=== PATIENT | male | born 1960 | race Caucasian/White ===

== ENCOUNTER 2022-10-01 11:12 | Outpatient (CLI) | payer BC, SELFPAY | END 2022-10-01 11:13 | disposition home or self-care (01) | PROVIDERS: PCP Family Medicine; Visit Provider Family Medicine | DX: Z00.00 Encounter for general adult medical examination without abnormal findings (principal); R79.89 Other specified abnormal findings of blood chemistry; R73.9 Hyperglycemia, unspecified; I10 Essential (primary) hypertension | CPT/HCPCS: 80076 ==

== ENCOUNTER 2022-12-26 10:19 | Emergency (ER) | payer BC, SELFPAY ==
[2022-12-26 10:42] VITALS: BP 145/77; PULSE 60; RESP 16; TEMP 36.6; O2SAT 94; BMI 33.5
--- NOTE | 2022-12-26 11:18 | ED_ITS ---
HPI - General Adult General Date Seen: 12/26/22 Chief complaint: Laceration/Wound Stated complaint: Vein burst on L ankle Time Seen by Provider: 12/26/22 11:04 Source: patient Mode of arrival: ambulatory Limitations: no limitations History of Present Illness HPI narrative: Patient is a 62-year-old male who had bleeding from a varicosity on his left ankle last night. He has had this happen a couple times before, so he wrapped it with Gelfoam and left the dressing on until today. He want to have it looked at. He has had vein stripping a couple of times in the past and feels he is due for repeat treatment. Since wrapping it he does not feel that there has been any further bleeding. He takes Eliquis for atrial fibrillation. He does have a valve but it is a bovine valve. Related Data Home Medications Medication Instructions Recorded Confirmed furosemide 40 mg tablet 40 mg PO BID 12/18/21 12/26/22 potassium chloride 10 mEq 10 meq PO QDAY 12/28/21 12/26/22 capsule,extended release ascorbic acid (vitamin C) 1,000 mg 1 g PO QDAY 12/26/22 12/26/22 capsule multivitamin 1 tab PO QAM 12/26/22 12/26/22 vitamin B complex 1 tab PO QDAY 12/26/22 12/26/22 Previous Rx's Medication Instructions Recorded albuterol sulfate 90 mcg/actuation 2 puff inhalation Q6H PRN 06/09/22 aerosol inhaler shortness of breath or wheezing #8.5 grams apixaban 2.5 mg tablet (Eliquis) 2.5 mg PO BID #60 tabs 11/05/22 carvedilol 6.25 mg tablet 6.25 mg PO BID #180 tabs 11/05/22 Allergies Allergy/AdvReac Type Severity Reaction Status Date / Time No Known Allergies Allergy Verified 12/26/22 10:40 [facility] Medical History (Updated 12/26/22 @ 11:18 by Eladia Owens MD) LFT elevation ?R79.89 - Other specified abnormal findings of blood chemistry (ICD-10) Medicare annual wellness visit, subsequent ?Z00.00 - Encounter for general adult medical examination without abnormal findings (ICD-10) Atrial fibrillation ?I48.91 - Unspecified atrial fibrillation (ICD-10) History of paroxysmal supraventricular tachycardia ?Z86.79 - Personal history of other diseases of the circulatory system (ICD- 10) History of gastrointestinal hemorrhage ?Z87.19 - Personal history of other diseases of the digestive system (ICD-10) History of coronary angiogram ?Z98.890 - Other specified postprocedural states (ICD-10) History of cerebrovascular accident (CVA) due to embolism ?Z86.73 - Personal history of transient ischemic attack (TIA), and cerebral infarction without residual deficits (ICD-10) History of cardioversion ?Z92.89 - Personal history of other medical treatment (ICD-10) Venous insufficiency ?I87.2 - Venous insufficiency (chronic) (peripheral) (ICD-10) Surgical History (Updated 11/13/22 @ 09:21 by Amanuel Cha RN, RN) Status post aortic valve replacement ?Z95.2 - Presence of prosthetic heart valve (ICD-10) History of thoracic aortic aneurysm repair ?Z98.890 - Other specified postprocedural states (ICD-10) ?Z86.79 - Personal history of other diseases of the circulatory system (ICD- 10) History of esophagogastroduodenoscopy (EGD) ?Z98.890 - Other specified postprocedural states (ICD-10) History of colonoscopy ?Z98.890 - Other specified postprocedural states (ICD-10) Family History (Updated 09/28/22 @ 11:47 by Bertha Daniels) Father Alcohol abuse Mother Alcohol abuse Blood disease Brother Aneurysm Colon cancer Paternal Grandmother Breast cancer Social History Smoking Status: Light tobacco smoker What tobacco products do you use: cigarettes Smoking packs per day: 0.01 Smoking cigarettes per day: 0.2 Second hand tobacco smoke exposure: No How often do you have a drink containing alcohol: 2-3 times a week How many standard drinks containing alcohol do you have on a typical day: 3 or 4 AUDIT-C Alcohol total score: 4 Non-prescribed substance use: marijuana (any form) Little interest or pleasure in doing things: not at all Feeling down, depressed, or hopeless: not at all service: No Exam Narrative: Exam Narrative: Vital signs reviewed. Extremities: Examination of the left ankle reveals initially wrapped in an Reji wrap and gauze. The area with the Gelfoam and scab was carefully removed, there was no active bleeding or evidence of infection. There was a small area of recent bleeding. Skin: Warm and dry. Significant venous stasis disease, varicosities. Const: Vital Signs, click to edit/add: Vital Signs - 24 hr 12/26/22 10:42 Temperature 97.8 F Pulse Rate [Pulse Oximeter] 60 Respiratory Rate 16 Blood Pressure [Ri ght Upper Arm] 145/77 H Pulse Oximetry 94 Oxygen Delivery Me thod Room Air Documenting provider has reviewed patient's vital signs: yes Course Course ED Course: Reassured him that at this time everything looks stable re-dressed the area with some bacitracin, dry gauze, replaced the Reji wrap. Recommended that he leave this in place for couple of days to let this stabilized. He has plans to follow-up with his doctor who manages his venous disease. He held his Eliquis this morning, I have recommended that he resume that. I gave him another package of Gelfoam to take with him. Return at any time if he has recurrent bleeding which he is not able to manage with his usual measures or if he feels the area may be getting infected. Vital Signs Vital signs: Initial Vital Signs Temperature 97.8 F 12/26/22 10:42 Temperature Source Temporal Artery Scan 12/26/22 10:42 Pulse Rate 60 12/26/22 10:42 Pulse Rhythm Regular 12/26/22 10:42 Pulse Strength 3+ Normal 12/26/22 10:42 Respiratory Rate 16 12/26/22 10:42 Blood Pressure 145/77 H 12/26/22 10:42 Blood Pressure Mean 99 12/26/22 10:42 Pulse Oximetry 94 12/26/22 10:42 Oxygen Delivery Method Room Air 12/26/22 10:42 Vital Signs Temperature 97.8 F 12/26/22 10:42 Pulse Rate 60 12/26/22 10:42 Respiratory Rate 16 12/26/22 10:42 Blood Pressure 145/77 H 12/26/22 10:42 Pulse Oximetry 94 12/26/22 10:42 Oxygen Delivery Method Room Air 12/26/22 10:42 Temperature 97.8 F 12/26/22 10:42 Pulse Rate 60 12/26/22 10:42 Respiratory Rate 16 12/26/22 10:42 Blood Pressure 145/77 H 12/26/22 10:42 Pulse Oximetry 94 12/26/22 10:42 Oxygen Delivery Method Room Air 12/26/22 10:42 Discharge Plan Discharge Clinical Impression: Venous bleed Patient Disposition: Home, Self-Care Condition: Improved Additional Instructions: Leave dressing on for the next couple of days, remove carefully after that, most likely will not need covered but you can leave the Band-Aid on for couple of days after that if you would like. Follow-up with your doctor as planned. Return for signs of infection or recurrent bleeding that you cannot get stopped with your usual measures. Prescriptions: No Action albuterol sulfate 90 mcg/actuation HFA aerosol inhaler 2 puff inhalation Q6H PRN (Reason: shortness of breath or wheezing) Qty: 8.5 1RF ascorbic acid (vitamin C) 1,000 mg capsule 1 g PO QDAY multivitamin Tablet 1 tab PO QAM vitamin B complex Tablet 1 tab PO QDAY furosemide 40 mg tablet 40 mg PO BID potassium chloride 10 mEq capsule, extended release 10 meq PO QDAY Eliquis 2.5 mg tablet 2.5 mg PO BID Qty: 60 2RF carvedilol 6.25 mg tablet 6.25 mg PO BID Qty: 180 1RF Rx Instructions: must administer with a meal/food Follow Up/Referrals: Gene Melgoza MD [Primary Care Provider] - Stand Alone Forms: [facility] Medical Info Instructions
== END 2022-12-26 12:30 | disposition home or self-care (01) ==
LOC: ED 11:25
PROVIDERS: Emergency Provider Emergency Medicine; PCP Family Medicine
DX: M25.072 Hemarthrosis, left ankle (principal)
CPT/HCPCS: 99282; 99283

== ENCOUNTER 2023-09-20 07:58 | Outpatient (CLI) | payer BC, SELFPAY | END 2023-09-20 07:59 | disposition home or self-care (01) | LOC: NFLDREF 09-24 20:35 | PROVIDERS: PCP Family Medicine; Referring Provider Family Medicine; Visit Provider Family Medicine | DX: E78.00 Pure hypercholesterolemia, unspecified (principal); R73.9 Hyperglycemia, unspecified; D70.9 Neutropenia, unspecified; I10 Essential (primary) hypertension; Z12.5 Encounter for screening for malignant neoplasm of prostate | CPT/HCPCS: 80053; 80061; G0103 ==

== ENCOUNTER 2024-05-28 08:19 | Outpatient (CLI) | payer MEDICARE, BC, SELFPAY | END 2024-05-28 08:20 | disposition home or self-care (01) | LOC: LKVREF 08:21 | PROVIDERS: PCP Family Medicine; Visit Provider Family Medicine | DX: E78.00 Pure hypercholesterolemia, unspecified (principal); I10 Essential (primary) hypertension; R79.89 Other specified abnormal findings of blood chemistry; B35.1 Tinea unguium; D70.9 Neutropenia, unspecified; I87.2 Venous insufficiency (chronic) (peripheral) | CPT/HCPCS: 80061; 80076 ==

== ENCOUNTER 2025-04-20 11:03 | Outpatient (CLI) | payer MEDICARE, SELFPAY | END 2025-04-20 11:04 | disposition home or self-care (01) | LOC: LKVREF 11:04 | PROVIDERS: PCP Family Medicine; Visit Provider Family Medicine | DX: Z00.00 Encounter for general adult medical examination without abnormal findings (principal); E78.00 Pure hypercholesterolemia, unspecified; R79.89 Other specified abnormal findings of blood chemistry; Z12.5 Encounter for screening for malignant neoplasm of prostate | CPT/HCPCS: 80053; 80061; G0103 ==